=== PATIENT | female | born 1995 | race Caucasian/White ===

== ENCOUNTER 2017-04-12 02:59 | Emergency (ER) | payer BC ==
[2017-04-12 03:08] VITALS: RESP 16
[2017-04-12] MEDS ORDERED: NS 1,000 ML IV ONE (03:17)
[2017-04-12] MEDS ORDERED: ONDANSETRON 4 MG/2 ML VIAL IVP ONE (03:17)
--- NOTE | 2017-04-12 03:18 | EDPHY ---
H & P Stated Complaint: nausea vomiting ghb ingestion at 11 pm Time Seen by Provider: 04/12/17 03:08 HPI/ROS: Chief Complaint: Vomiting, GHB use HPI: 21-year-old female was using GHB with her boyfriend several hours ago. Afterwards she started having severe nausea and vomiting and shaking. Patient was somnolent but did not have a loss of consciousness. No coughing or shortness of breath. No fevers or chills. States she is feeling a little bit clearer now in better now. Has had similar reactions to GHB in the past but not as severe. Denies any other ingestions. No past medical history. ROS: 10 point Review of Systems is negative except as noted in the HPI. PMH: Denies Medications: Denies Allergies: Denies Social History: No smoking, occasional alcohol, occasional GHB Family History: non-contributory Physical Exam: Gen: Awake, Alert, No Distress HEENT: Nose: no rhinorrhea Eyes: PERRLA, EOMI Mouth: Moist mucosa Neck: Supple, no JVD Chest: nontender, lungs clear to auscultation Heart: S1, S2 normal, no murmur Abd: Soft, non-tender, no guarding Back: no CVA tenderness, no midline tenderness Ext: no edema, non-tender Skin: no rash Neuro: CN II-XII intact, Sensation grossly intact, Strength 5/5 in bilateral upper and lower extremities - Personal History LMP (Females 10-55): Over 28 Days Ago Current Tetanus/Diphtheria Vaccine: Yes Current Tetanus Diphtheria and Acellular Pertussis (TDAP): Yes - Medical/Surgical History Hx Asthma: Yes Hx Chronic Respiratory Disease: No Hx Diabetes: No Hx Cardiac Disease: No Hx Renal Disease: No Hx Cirrhosis: No Hx Alcoholism: No Hx HIV/AIDS: No Hx Splenectomy or Spleen Trauma: No - Social History Smoking Status: Never smoked Constitutional: Initial Vital Signs Temperature (C) 36.3 C 04/12/17 03:03 Heart Rate 95 04/12/17 03:03 Respiratory Rate 16 04/12/17 03:03 Blood Pressure 135/116 H 04/12/17 03:03 O2 Sat (%) 94 04/12/17 03:03 O2 Delivery Mode Room Air Allergies/Adverse Reactions: No Known Allergies Allergy (Unverified 04/12/17 03:02) Home Medications: Medication Instructions Recorded Contoll 04/12/17 Medical Decision Making ED Course/Re-evaluation: Patient is improved after IV hydration and Zofran. She is tolerating p. o.. Patient will be discharged with cautions to discontinue using GHB. - Data Points Medications Given: Discontinued Medications Sodium Chloride (Ns) 1,000 mls @ 0 mls/hr IV ONCE ONE PRN Reason: Wide Open Stop: 04/12/17 03:18 Last Admin: 04/12/17 03:26 Dose: 1,000 mls Ondansetron HCl (Zofran) 4 mg IVP EDNOW ONE Stop: 04/12/17 03:18 Last Admin: 04/12/17 03:26 Dose: 4 mg Departure - Departure Disposition: Home, Routine, Self-Care Clinical Impression: Substance abuse, Vomiting Condition: Good Instructions: Acute Nausea and Vomiting (ED), Polysubstance Abuse (ED) Additional Instructions: Please try to avoid using illicit substances. Follow up with primary care physician in 3-4 days for re-evaluation. Return emergency depart for increasing nausea, vomiting, fevers, chills, pain, or any other concerns. Referrals: Efra Uribe MD [Medical Doctor] - As per Instructions
[2017-04-12 05:13] VITALS: BP 117/62; PULSE 62; TEMP 98.1; O2SAT 97
== END 2017-04-12 05:12 | disposition home or self-care (01) ==
DX: F19.10 Other psychoactive substance abuse, uncomplicated (principal); R11.10 Vomiting, unspecified; J45.909 Unspecified asthma, uncomplicated
CPT/HCPCS: 96374; J2405